=== PATIENT | female | born 1945 | race Caucasian/White ===

== ENCOUNTER 2016-05-07 01:04 | Emergency (ER) | payer OTHER ==
[~2016-05-07 01:04] MED LIST: NORVASC2.5 MG PO; STAHIST AD TAB1 EACH PO; XANAX0.5 MG PO
[2016-05-07 02:00] LABS: BASOPHIL 0.1 % (0-2); EOSINOPHIL 0.9 % (0-7); HCT 41.5 % (37.0-47.0); HGB 14.2 g/dl (12.5-16.0); LYMPHOCYTE 21.8 % (15-48); MCH 29.4 pg (25.0-31.0); MCHC 34.2 g/dL (32.0-36.0); MCV 85.9 fL (78.0-100.0); MONOCYTE 9.4 % (0-12); MPV 10.5 fL (6.0-9.5); NEUTROPHIL 67.8 % (41-80); PLT 310 K/uL (150-400); RBC 4.83 M/uL (4.20-5.40); RDW 13.6 % (11.5-14.0)
[2016-05-07 02:02] LABS: WBC 11.7 K/uL (4.0-10.5)
[2016-05-07 02:11] LABS: ALBUMIN 4.5 g/dL (3.4-4.8); BILIRUBIN - TOTAL 0.7 mg/dL (0.1-1.0); CREATININE 0.8 mg/dL (0.5-1.0); GLOBULIN (CALCULATION) 2.1 g/dL (2.2-4.2); POTASSIUM 4.1 mmol/L (3.5-5.1); TOTAL PROTEIN 6.6 g/dL (6.4-8.3)
[2016-10-11] MEDS ORDERED: LIPITOR40 MG PO (08:58)
[2016-10-11] MEDS ORDERED: PROTONIX 40MG T40 MG PO (08:58)
[2016-10-11] MEDS ORDERED: PLAVIX75 MG PO (08:59)
[2016-10-11] MEDS ORDERED: ISOSORBIDE MONO60 MG PO (09:00)
[2016-10-11] MEDS ORDERED: BYSTOLIC2.5 MG PO (09:01)
[2016-10-11] MEDS ORDERED: ASPIRIN CHEWABL81 MG PO (09:01)
[2016-10-11] MEDS ORDERED: NITROSTAT0.4 MG SL (09:02)
[2016-10-11] MEDS ORDERED: XANAX0.25 MG PO (11:40)
[2016-10-11] MEDS ORDERED: ZYRTEC10 MG PO (11:40)
[2016-10-11] MEDS ORDERED: ROCEPHIN 1GM1 GM IM (11:41)
[2016-10-11] MEDS ORDERED: TRULICITY0.75 MG/0. SC (11:41)
== END 2016-05-07 05:05 | disposition home or self-care (01) ==
LOC: FER 01:04
PROVIDERS: Emergency Medicine
DX: R07.2 Precordial pain (principal); R06.02 Shortness of breath; I11.9 Hypertensive heart disease without heart failure; E11.9 Type 2 diabetes mellitus without complications; E78.5 Hyperlipidemia, unspecified; Z82.49 Family history of ischemic heart disease and other diseases of the circulatory system; Z95.5 Presence of coronary angioplasty implant and graft
CPT/HCPCS: 36415; 71010; 80053; 84484; 85025; 93005; J2270

== ENCOUNTER 2016-06-02 09:42 | Emergency (ER) | payer OTHER ==
[2016-10-11] MEDS ORDERED: LIPITOR40 MG PO (08:58)
[2016-10-11] MEDS ORDERED: PROTONIX 40MG T40 MG PO (08:58)
[2016-10-11] MEDS ORDERED: PLAVIX75 MG PO (08:59)
[2016-10-11] MEDS ORDERED: ISOSORBIDE MONO60 MG PO (09:00)
[2016-10-11] MEDS ORDERED: ASPIRIN CHEWABL81 MG PO (09:01)
[2016-10-11] MEDS ORDERED: BYSTOLIC2.5 MG PO (09:01)
[2016-10-11] MEDS ORDERED: NITROSTAT0.4 MG SL (09:02)
[2016-10-11] MEDS ORDERED: XANAX0.25 MG PO (11:40)
[2016-10-11] MEDS ORDERED: ZYRTEC10 MG PO (11:40)
[2016-10-11] MEDS ORDERED: TRULICITY0.75 MG/0. SC (11:41)
[2016-10-11] MEDS ORDERED: ROCEPHIN 1GM1 GM IM (11:41)
== END 2016-06-02 11:48 | disposition home or self-care (01) ==
LOC: FER 09:42
DX: L27.1 Localized skin eruption due to drugs and medicaments taken internally (principal); T38.3X5A Adverse effect of insulin and oral hypoglycemic [antidiabetic] drugs, initial encounter; E11.9 Type 2 diabetes mellitus without complications; I10 Essential (primary) hypertension; F41.9 Anxiety disorder, unspecified; Z79.899 Other long term (current) drug therapy; Z79.82 Long term (current) use of aspirin; Z79.4 Long term (current) use of insulin; Z88.1 Allergy status to other antibiotic agents; Z88.0 Allergy status to penicillin; Z88.2 Allergy status to sulfonamides; Z88.8 Allergy status to other drugs, medicaments and biological substances; Z95.5 Presence of coronary angioplasty implant and graft; Y92.009 Unspecified place in unspecified non-institutional (private) residence as the place of occurrence of the external cause
CPT/HCPCS: J1030

== ENCOUNTER 2020-08-27 13:08 | Emergency (ER) | payer OTHER ==
[~2020-08-27 13:08] MED LIST changes: +ASPIRIN CHEWABL81 MG PO; +BYSTOLIC2.5 MG PO; +FISH OIL 1,0001 EACH PO; +ISOSORBIDE MONO60 MG PO; +LIPITOR40 MG PO; +LOVAZA1 GM PO; +MEDROL 4MG DOSEP4 MG PO; +NITROSTAT0.4 MG SL; +NORCO 5-325 TA1 EACH PO; +PLAVIX75 MG PO; +PROTONIX 40MG T40 MG PO; +ROCEPHIN 1GM1 GM IM; +TAMIFLU 75MG CA75 MG PO; +TRULICITY0.75 MG/0. SC; +VITAMIN B-121000 MC1 PO; +VITAMIN D32000 UNIT PO; +XANAX0.25 M1 PO; +XANAX0.25 MG PO; +ZYRTEC10 MG PO
[2020-08-27 14:44] LABS: BUN/CREAT RATIO (CALC) 13.4 RATIO; CREATININE 0.82 mg/dL (0.51-0.95); POTASSIUM 4.4 mmol/L (3.5-5.1)
[2020-08-27 14:49] LABS: BASOPHIL 0.8 % (0-2); EOSINOPHIL 1.2 % (0-7); HCT 42.4 % (37.0-47.0); HGB 13.8 g/dl (12.5-16.0); LYMPHOCYTE 20.2 % (15-48); MCHC 32.5 g/dL (32.0-36.0); MCV 89.1 fL (78.0-100.0); MONOCYTE 8.7 % (0-12); MPV 10.1 fL (6.0-9.5); NEUTROPHIL 68.8 % (41-80); NRBC 0; PLT 294 K/uL (150-400); RBC 4.76 M/uL (4.20-5.40); RDW 13.1 % (11.5-14.0); WBC 6.6 K/uL (4.0-10.5)
== END 2020-08-27 15:53 | disposition home or self-care (01) ==
LOC: FER 13:08
PROVIDERS: Nurse Practitioner Family
DX: M54.2 Cervicalgia (principal); M25.511 Pain in right shoulder; E11.9 Type 2 diabetes mellitus without complications; I10 Essential (primary) hypertension; Z88.0 Allergy status to penicillin; Z88.5 Allergy status to narcotic agent; Z88.1 Allergy status to other antibiotic agents; Z88.2 Allergy status to sulfonamides; Z88.8 Allergy status to other drugs, medicaments and biological substances
CPT/HCPCS: 36415; 70360; 80048; 85025

== ENCOUNTER 2020-12-24 08:47 | Emergency (ER) | payer OTHER ==
[2020-12-24 09:47] LABS: BASOPHIL 1.2 % (0-2); EOSINOPHIL 3.2 % (0-7); HCT 44.1 % (37.0-47.0); HGB 14.4 g/dl (12.5-16.0); MCHC 32.7 g/dL (32.0-36.0); MCV 88.7 fL (78.0-100.0); MONOCYTE 13.4 % (0-12); MPV 10.8 fL (6.0-9.5); NEUTROPHIL 52.7 % (41-80); NRBC 0; PLT 297 K/uL (150-400); RBC 4.97 M/uL (4.20-5.40); RDW 13.6 % (11.5-14.0)
[2020-12-24 10:41] LABS: ALBUMIN 4.1 g/dL (3.4-5.0); BILIRUBIN - TOTAL 0.6 mg/dL (0.2-1.0); BUN/CREAT RATIO (CALC) 16.9 RATIO; CREATININE 0.71 mg/dL (0.51-0.95); GLOBULIN (CALCULATION) 2.6 g/dL; POTASSIUM 4.1 mmol/L (3.5-5.1); TOTAL PROTEIN 6.7 g/dL (6.4-8.2)
[2020-12-24 10:43] LABS: INR 1.07 (0.9-1.2); PROTHROMBIN TIME 13.3 SECONDS (11.8-13.4); PTT 31.2 SECONDS (24.4-34.7)
[2020-12-24 10:55] LABS: BILIRUBIN NEGATIVE (NEGATIVE); BLOOD NEGATIVE Ery/uL (NEGATIVE); CLARITY CLEAR (CLEAR); COLOR YELLOW (YELLOW); GLUCOSE (U) NORMAL (NORMAL); LEUKOCYTES NEGATIVE Leu/uL (NEGATIVE); NITRITE NEGATIVE (NEGATIVE); PROTEIN NEGATIVE (NEGATIVE); UROBILINOGEN 0.2 mg/dL (0.2-1.0); pH 5.5 (5.0-9.0)
[2020-12-24 11:09] LABS: LACTIC ACID 1.3 mmol/L (0.4-1.9)
[2020-12-24] MEDS ORDERED: ONDANSETRON ODT4 MG PO (11:58)
== END 2020-12-24 12:05 | disposition home or self-care (01) ==
LOC: FER 08:47
PROVIDERS: Emergency Medicine
DX: R10.31 Right lower quadrant pain (principal); R11.0 Nausea; I10 Essential (primary) hypertension; E11.9 Type 2 diabetes mellitus without complications; Z87.891 Personal history of nicotine dependence; Z79.01 Long term (current) use of anticoagulants; Z88.0 Allergy status to penicillin; Z88.2 Allergy status to sulfonamides; Z88.1 Allergy status to other antibiotic agents; Z88.5 Allergy status to narcotic agent; Z88.8 Allergy status to other drugs, medicaments and biological substances; Z79.02 Long term (current) use of antithrombotics/antiplatelets; Z79.899 Other long term (current) drug therapy
CPT/HCPCS: 36415; 80053; 81003; 83605; 84145; 84484; 85025; 85610; 85730; 87040; 87088; J2405; J7030; Q9967

== ENCOUNTER 2021-05-26 15:15 | Emergency (ER) | payer OTHER ==
[~2021-05-26 15:15] MED LIST changes: +ONDANSETRON ODT4 MG PO
[2021-05-26 16:01] LABS: BASOPHIL 1.3 % (0-2); EOSINOPHIL 2.1 % (0-7); HCT 40.8 % (37.0-47.0); HGB 13.3 g/dl (12.5-16.0); LYMPHOCYTE 27.3 % (15-48); MCHC 32.6 g/dL (32.0-36.0); MCV 89.1 fL (78.0-100.0); MONOCYTE 12.6 % (0-12); MPV 10.2 fL (6.0-9.5); NEUTROPHIL 56.3 % (41-80); NRBC 0; PLT 273 K/uL (150-400); RBC 4.58 M/uL (4.20-5.40); WBC 4.8 K/uL (4.0-10.5)
[2021-05-26 16:18] LABS: BUN/CREAT RATIO (CALC) 14.3 RATIO; CREATININE 0.84 mg/dL (0.51-0.95); POTASSIUM 4.2 mmol/L (3.5-5.1)
[2021-05-26 16:22] LABS: BILIRUBIN NEGATIVE (NEGATIVE); BLOOD NEGATIVE Ery/uL (NEGATIVE); CLARITY CLEAR (CLEAR); COLOR YELLOW (YELLOW); GLUCOSE (U) NORMAL (NORMAL); LEUKOCYTES NEGATIVE Leu/uL (NEGATIVE); NITRITE NEGATIVE (NEGATIVE); PROTEIN NEGATIVE (NEGATIVE); UROBILINOGEN 0.2 mg/dL (0.2-1.0); pH 5.5 (5.0-9.0)
== END 2021-05-26 17:31 | disposition home or self-care (01) ==
LOC: FER 15:15
PROVIDERS: Nurse Practitioner Family
DX: R30.0 Dysuria (principal); I10 Essential (primary) hypertension; E11.9 Type 2 diabetes mellitus without complications; Z88.0 Allergy status to penicillin; Z88.2 Allergy status to sulfonamides; Z88.1 Allergy status to other antibiotic agents; Z88.8 Allergy status to other drugs, medicaments and biological substances
CPT/HCPCS: 36415; 80048; 81003; 85025; 87088; 99283